=== PATIENT | male | born 1990 | race Caucasian/White ===

== ENCOUNTER 2018-11-27 11:52 | Emergency (ER) | payer SELFPAY ==
[2018-11-27 12:55] LABS: ABS Basophils 0 10^3/ul (0-0.2); ABS Eosinophils 0 10^3/ul (0-0.6); ABS Lymphocytes 1.5 10^3/ul (1.0-4.8); ABS Monocytes 0.3 10^3/ul (0-0.8); ABS Neutrophils 6.2 10^3/ul (1.5-7.7); ABS Nucleated RBC 0 10^3/ul; Eosinophil % 0.1 %; Hematocrit 48 % (36-46); Hemoglobin 16.5 g/dL (14.0-18.0); Lymphocyte % 19.2 %; Mean Corpuscular HGB Conc 34 g/dL (31-36); Mean Corpuscular Hemoglobin 31 pg (27-31); Mean Corpuscular Volume 91 fL (80-94); Mean Platelet Volume 8.6 fL (7.4-10.4); Nucleated Red Blood Cells % 0; Platelet Count 215 10^3/uL (150-450); Red Blood Count 5.26 10^6 /uL (4.18-5.48); Red Cell Distribution Width 13 % (10.5-15)
[2018-11-27 13:12] LABS: ALT 43 U/L (7-52); AST 27 U/L (13-39); Albumin 4.7 g/dL (3.2-5.2); Albumin/Globulin Ratio 1.8 (1-3); Alkaline Phosphatase 49 U/L (34-104); Anion Gap 7 mmol/L (2-11); BUN/Creatinine Ratio 22.4 (8-20); Blood Urea Nitrogen 19 mg/dL (6-24); C Reactive Protein 1.98 mg/L (<8.01); CO2 Carbon Dioxide 27 mmol/L (22-32); Calcium 9.5 mg/dL (8.6-10.3); Chloride 105 mmol/L (101-111); EGFR African American 128.9 (>60); EGFR Non-African American 106.6 (>60); Globulin 2.6 g/dL (2-4); Glucose 102 mg/dL (70-100); Potassium 4.1 mmol/L (3.5-5.0); Sodium 139 mmol/L (135-145); Total Protein 7.3 g/dL (6.4-8.9)
--- NOTE | 2018-11-27 15:15 | ED ---
Neurological HPI - HPI Summary HPI Summary: Patient is a 28 y/o male who presents to the ED c/o paresthesia. 9 days ago he fell asleep in an awkward position on his couch and woke up with numbness and paresthesia of his bilateral hands. He now has numbness and paresthesia of his BUE, BLE, torso, back, and buttocks. He also c/o intense cramping pain and tightness of his muscles with movement. Patient denies any dark colored urine or fever. He believes he has a pinched nerve or herniated disc because these symptoms are similar to a prior herniated disc at C5. At that time his entire RUE was numb for 6 weeks after falling asleep awkwardly on his couch. He saw his PCP 2 days ago who prescribed him Prednisone. He denies any recent exercise or taking supplements. Patient has had two tick bites in the past few years and denies any known Lyme disease. - History of Current Complaint Chief Complaint: EDGeneral Stated Complaint: NUMBNESSIN BODY Time Seen by Provider: 11/27/18 15:11 Hx Obtained From: Patient Onset/Duration: Gradual Onset, Started days ago - 9, Still Present Timing: Constant Neurological Deficit Location: RUE, LUE, RLE, LLE Pain Intensity: 0 Pain Scale Used: 0-10 Numeric Character: Numbness/Tingling, Paresthesia, Other: - cramping/tightness - Allergy/Home Medications Allergies/Adverse Reactions: Allergies Allergy/AdvReac Type Severity Reaction Status Date / Time No Known Allergies Allergy Verified 11/27/18 12:05 PMH/Surg Hx/FS Hx/Imm Hx Endocrine/Hematology History: Denies: Hx Diabetes Cardiovascular History: Denies: Hx Hypertension Musculoskeletal History: Reports: Other Musculoskeletal History - C5 herniated disc Infectious Disease History: No Infectious Disease History: Denies: Traveled Outside the [place] in Last 30 Days - Family History Known Family History: Positive: Cardiac Disease - AFib, Renal Disease - Social History Alcohol Use: Rare Hx Substance Use: Yes Substance Use Type: Reports: Marijuana Hx Tobacco Use: No Smoking Status (MU): Never Smoked Tobacco Review of Systems Negative: Fever Negative: other - dark urine Positive: Myalgia - cramping, tightness Positive: Paresthesia, Numbness All Other Systems Reviewed And Are Negative: Yes Physical Exam - Summary Physical Exam Summary: Appearance: Well appearing, no pain distress Skin: warm, dry, reflects adequate perfusion Head/face: normal Eyes: EOMI, CHAKA ENT: mucous membranes moist Neck: supple, non-tender Respiratory: CTA, breath sounds present Cardiovascular: RRR, pulses symmetrical Abdomen: non-tender, soft Bowel Sounds: present Musculoskeletal: normal, strength/ROM intact Neuro: normal, sensory motor intact, A&Ox3, normal gait, normal core strength Triage Information Reviewed: Yes Vital Signs On Initial Exam: Initial Vitals Temp Pulse Resp BP Pulse Ox 98.5 F 62 16 151/95 97 11/27/18 12:02 11/27/18 12:02 11/27/18 12:02 11/27/18 12:02 11/27/18 12:02 Vital Signs Reviewed: Yes Diagnostics - Vital Signs Vital Signs Temp Pulse Resp BP Pulse Ox 11/27/18 14:21 99.0 F 70 10 138/71 100 11/27/18 12:02 98.5 F 62 16 151/95 97 - Laboratory Lab Results: Lab Results 11/27/18 11/27/18 Range/Units 12:49 12:49 WBC 8.0 (3.5-10.8) 10^3/uL RBC 5.26 (4.18-5.48) 10^6 /uL Hgb 16.5 (14.0-18.0) g/dL Hct 48 H (36-46) % MCV 91 (80-94) fL MCH 31 (27-31) pg MCHC 34 (31-36) g/dL RDW 13 (10.5-15) % Plt Count 215 (150-450) 10^3/uL MPV 8.6 (7.4-10.4) fL Neut % (Auto) 76.8 % Lymph % (Auto) 19.2 % [place] % (Auto) 3.6 % Eos % (Auto) 0.1 % Baso % (Auto) 0.3 % Absolute Neuts (auto) 6.2 (1.5-7.7) 10^3/ul Absolute Lymphs (auto) 1.5 (1.0-4.8) 10^3/ul Absolute Monos (auto) 0.3 (0-0.8) 10^3/ul Absolute Eos (auto) 0 (0-0.6) 10^3/ul Absolute Basos (auto) 0 (0-0.2) 10^3/ul Absolute Nucleated RBC 0 10^3/ul Nucleated RBC % 0 Sodium 139 (135-145) mmol/L Potassium 4.1 (3.5-5.0) mmol/L Chloride 105 (101-111) mmol/L Carbon Dioxide 27 (22-32) mmol/L Anion Gap 7 (2-11) mmol/L BUN 19 (6-24) mg/dL Creatinine 0.85 (0.67-1.17) mg/dL Est GFR ( Amer) 128.9 (>60) Est GFR (Non-Af Amer) 106.6 (>60) BUN/Creatinine Ratio 22.4 H (8-20) Glucose 102 H (70-100) mg/dL Calcium 9.5 (8.6-10.3) mg/dL Total Bilirubin 0.50 (0.2-1.0) mg/dL AST 27 (13-39) U/L ALT 43 (7-52) U/L Alkaline Phosphatase 49 (34-104) U/L C-Reactive Protein 1.98 (<8.01) mg/L Total Protein 7.3 (6.4-8.9) g/dL Albumin 4.7 (3.2-5.2) g/dL Globulin 2.6 (2-4) g/dL Albumin/Globulin Ratio 1.8 (1-3) Result Diagrams: 11/27/18 12:49 11/27/18 12:49 Lab Statement: Any lab studies that have been ordered have been reviewed, and results considered in the medical decision making process. NIH Scale - NIH Scale Level of Consciousness: Alert/Keenly Responsive Ask Patient the Month and His/Her Age: Both Correct Ask Pt to Open/Close Eyes and Radio Host/Release Non-Paretic Hand: Both Correctly Best Gaze (Only Horizontal Eye Movement): Normal Visual Field Testing: No Visual Loss Facial Paresis-Pt to Smile & Close Eyes or Grimace Symmetry: Normal/Symmetrical Motor Function - Right Arm: No Drift-Holds 10 Seconds Motor Function - Left Arm: No Drift-Holds 10 Seconds Motor Function - Right Leg: No Drift-Holds 10 Seconds Motor Function - Left Leg: No Drift-Holds 10 Seconds Limb Ataxia-Must be out of Proportion to Weakness Present: Absent Sensory (Use Pinprick to Test Arms/Legs/Trunk/Face): Normal Best Language (Describe Picture, Name Items): No Aphasia Dysarthria (Read Several Words): Normal Extinction and Inattention: No Abnormality Total Score: 0 Re-Evaluation - Re-Evaluation First Eval Re-Evaluation Time: 15:53 Change: Unchanged Comment: Discussed results and plan with pt. Course/Dx - Course Course Of Treatment: Nurse's notes reviewed. Patient with widespread numbness and heaviness in his muscles. CPK is normal. All laboratories within normal limits. He is neurologically intact other then slightly diminished sensation in places. There is no family history for MS or other demyelinating disease. He was tested for Lyme, lead, B12/Funez which are pending. He'll follow closely with a primary care physician. [facility] clinic was given. - Differential Dx Differential Diagnoses Neuro: Positive: Anxiety, Drug Toxicity, Medication Reaction, Metabolic Abnormality, Other - lyme, lead - Diagnoses Provider Diagnoses: Neuropathy, Numbness Discharge - Sign-Out/Discharge Documenting (check all that apply): Patient Departure - Discharge Patient Received Moderate/Deep Sedation with Procedure: No - Discharge Plan Condition: Improved Disposition: HOME Patient Education Materials: Paresthesia (ED) Referrals: [facility] [Outside] [facility] [Outside] Roosevelt Bailey, [Primary Care Provider] - Additional Instructions: Drink plenty of fluids. Follow up closely with the [facility] here at the hospital. They can likely see her Wednesday or Wednesday. We were also given primary care referral, call to be matched with her primary care doctor. You'll need more testing to be performed and may need referral to a specialist. Ensure that you're seen in follow-up soon. Return if worse, fever, dark urine , difficulty with walking, new symptoms or other concerns. - Billing Disposition and Condition Condition: IMPROVED Disposition: Home - Attestation Statements Document Initiated by Nidaibe: Yes Documenting Scribe: Margaret Aburto Provider For Whom Yocasta is Documenting (Include Credential): Neymar Rahman MD Scribe Attestation: Margaret Velazquez scribed for Neymar Rahman MD on 11/27/18 at 1818. Scribe Documentation Reviewed: Yes Provider Attestation: The documentation as recorded by the Margaret vee accurately reflects the service I personally performed and the decisions made by me, Neymar Rahman MD Status of Scribe Document: Viewed
[2018-11-27] MEDS ORDERED: NS 0.9% 1000 ML** 1,000 ML IV ONE (15:19)
[2018-11-27 15:36] LABS: Creatine Kinase 99 U/L (10-223)
[2018-11-27 16:02] LABS: Folate > 20.00 ng/mL (>3.99)
[2018-11-27 16:54] VITALS: BP 186/94
[2018-11-29 14:42] LABS: Submitting Laboratory Phone 6072744474; Venous/Capillary Venous
[2018-12-02 16:49] LABS: Lyme Disease IgG Ab WB Negative (Negative)
== END 2018-11-27 16:51 | disposition home or self-care (01) ==
LOC: ED 11:52
DX: G62.9 Polyneuropathy, unspecified (principal); R20.0 Anesthesia of skin; M50.221 Other cervical disc displacement at C4-C5 level
CPT/HCPCS: 36415; 80053; 82550; 82607; 82746; 83655; 85025; 86140; 86617; 86618; 96360; 96361; 99283